=== PATIENT | female | born 1980 | race Caucasian/White ===

== ENCOUNTER 2022-12-23 12:39 | Outpatient (CLI) | payer BC, SELFPAY ==
[2022-12-23 14:26] LABS: C Reactive Protein* 0.7 mg/dL (0.5-1.0)
== END 2022-12-23 12:40 | disposition home or self-care (01) ==
LOC: LKVREF 12:41
PROVIDERS: Visit Provider Family Medicine
DX: I77.6 Arteritis, unspecified (principal)
CPT/HCPCS: 86140